=== PATIENT | female | born 1985 | race Caucasian/White ===

== ENCOUNTER 2016-07-23 01:56 | Inpatient (IN) | payer OTHER ==
--- NOTE | ~2016-07-23 | BMI ---
[facility] Nutrition Therapy DATE: 07/23/16 Patient: ARIEL MEHTA Physician: JONATAN Address: [address] [place] [address] Room/Bed: [address] [place] [address], Zip: [place] [address] Admit Date: 07/23/16 Date of : [birth year] Height: Weight: 299 136 HIGH BMI NOTE: DX: 30 Y.O. FEMALE ADMITTED FOR STOMACH AND BACK PAIN. ANTHROPOMETRICS: 5'9", WT: 300# (136 KG), BMI 44 DIET: NPO INTERVENTION: 1. NPO RECOMMENDATIONS: 1. ONCE MEDICALLY FEASIBLE, ADVANCE DIET TO HEALTHY HEART DIET IN ORDER TO PROMOTE GRADUAL WEIGHT LOSS TOWARD A HEALTHY BMI (19.0-25.0) OR +/-10% IBW. RD WILL F/U PER PROTOCOL. Respectfully, LUIS A OROZCO, TRAVEL FREIGHT AND PASSENGER AGENT HUSSAIN ESCOBAR MS, RD, LD Food and Nutritional Services [facility] cc: client file
--- NOTE | ~2016-07-23 | CT2 ---
[facility] A Service of [facility] & [facility] RADIOLOGY TEXT RESULTS PATIENT: ARIEL MEHTA LOCATION: A 302-01 : 89 UNIT #: [id number] AGE: [address]: Mukul Lopez MD SEX: F ORDER DR: [id number] [facility] [address] [facility]. [place], [place] [address] [id number] I MR#: [id number] Acc #: [id number] NAME: ARIEL MEHTA : 1985 SEX: F STUDY DATE/TIME: 07/23/2016 4:34 UNIT: CEDOF ROOM: 95690 STUDY DESCRIPTION: CT Abd and Pelv W Cont Attending Physician: Pranay Monet M.D. Ordering Physician: Dorinda Poole A.P.R.N. Primary Care Physician: [facility] IMAGING REPORT This report is preliminary unless electronic signature is present EXAM CT abdomen and pelvis with contrast 07/23/2016 HISTORY 30-year-old female in the ED complaining of 2-day history of left upper abdomen pain radiating into the back. Fever. TECHNIQUE CT examination of the abdomen and pelvis was performed with IV contrast. GI contrast was not ordered. This CT examination was performed with one or more of the following radiation dose reduction techniques: automatic exposure control, adjustment of mA and/or kV according to patient size, and iterative reconstruction. FINDINGS ABDOMEN: Subtle soft tissue stranding surrounds the pancreas, the pancreas appears mildly enlarged. The appearance suggests mild diffuse acute pancreatitis. Pancreatic parenchyma enhances normally. No fluid collection is seen within or adjacent to the pancreas. The gallbladder is mildly distended. There is no intrahepatic or extrahepatic bile duct dilatation, there is no pancreatic duct dilatation. Consider followup ultrasound examination to evaluate for potential gallstone pancreatitis. Liver, pancreas, spleen and kidneys are normal in size and appearance. Mild diverticulosis is present throughout the sigmoid and lower descending colon, notable only for the patient's young age. There is no evidence of acute diverticulitis. Small bowel and colon are otherwise negative, and the appendix is normal. PELVIS: Uterus, ovaries, bladder and rectum are negative. No inguinal STS. [facility] A Service of [facility] & [facility] RADIOLOGY TEXT RESULTS PATIENT: ARIEL MEHTA LOCATION: C3A 302-01 : 87 UNIT #: [id number] AGE: [address]: Mukul Lopez MD SEX: F ORDER DR: hernia. IMPRESSION 1. Subtle CT findings suggesting mild diffuse acute pancreatitis. Clinical and laboratory correlation is recommended. 2. Gallbladder appears mildly distended but otherwise unremarkable. There is no bile duct or pancreatic duct dilatation. Consider followup ultrasound examination to exclude evidence of gallstone pancreatitis. 3. Mild sigmoid and descending colonic diverticulosis. Normal appendix. Dictated by... Vince James M.D. THIS IS AN ELECTRONICALLY VERIFIED REPORT Vince James M.D. at 07/30/2016 1:57 PM JOHNSON/christiano TD: 07/23/2016 06:22 JOB #: [id number] MEDICAL IMAGING REPORT Page 1 of 1 COPY
--- NOTE | ~2016-07-23 | NM22 ---
[facility] A Service of [facility] & [facility] RADIOLOGY TEXT RESULTS PATIENT: ARIEL MEHTA LOCATION: [facility] 302- : [birth year] UNIT #: [id number] AGE: [address]: Mukul Lopez MD SEX: F ORDER DR: [id number] [facility] [address] [facility]. [place], [place] [address] [id number] I MR#: [id number] Acc #: [id number] NAME: ARIEL MEHTA : 1985 SEX: F STUDY DATE/TIME: 07/26/2016 10:02 UNIT: [address] ROOM: [facility] STUDY DESCRIPTION: NM Hepatobiliary W GB Pharm Attending Physician: Mukul Lopez M.D. Ordering Physician: Saad Cannon M.D. Primary Care Physician: [facility] MEDICAL IMAGING REPORT This report is preliminary unless electronic signature is present EXAM HIDA scan with Kinevac CCK, 07/26/2016 HISTORY Right upper quadrant abdominal pain with back pain, nausea and vomiting since 07/20/2016. FINDINGS The patient received an intravenous injection of 6 mCi of technetium 99m tagged Choletec for hepatobiliary imaging. One hour following the injection of the radiopharmaceutical the patient received an intravenous injection of 2.9 mcg of Kinevac. There is homogeneous distribution of the radiotracer throughout the liver. Gallbladder activity was seen by 45 minutes postinjection of the radiopharmaceutical. Following Kinevac injection the gallbladder ejection fraction was 86.2% (normal is greater than 30%). IMPRESSION Normal HIDA scan with gallbladder ejection fraction of 86.2%. Dictated by... Rober Choudhary M.D. THIS IS AN ELECTRONICALLY VERIFIED REPORT Rober Choudhary M.D. at 07/27/2016 9:56 AM Wong TD: 07/26/2016 13:52 JOB #: [id number] MEDICAL IMAGING REPORT Page 1 of 1 COPY
--- NOTE | ~2016-07-23 | HP ---
Unit #: [id number] #: [id number] Patient: ARIEL MEHTA [id number] [address] [address] [id number] I MR#: [id number] NAME: ARIEL MEHTA ROOM: 302 Age: 30 Sex: F Admission Date: 07/23/2016 : 1985 Attending Physician: Mukul Lopez M.D. [facility] HISTORY AND PHYSICAL DIAGNOSIS ON ADMISSION Abdominal pain. HISTORY OF PRESENT ILLNESS A 30-year-old female presented to [facility] with abdominal pain. As per patient, she was in her usual state of health when she developed abdominal pain three days ago. Patient stated that the pain was on the mid to right side and was radiating to the back. As patient's pain did not improve, she decided to come to the hospital. Patient also stated that the pain was associated with nausea and vomiting and since yesterday, she is not able to keep anything down. Patient denies any fever, chills, or cough. She denies any headache or visual problems. Patient was diagnosed with acute pancreatitis in the ER and was admitted on the floor. Patient denies having fever, chills. There is no blood in urine or stools. There is no history of recent weight loss or loss of appetite. The rest of the review of systems was negative. PAST MEDICAL HISTORY 1. Patient was admitted at [facility] in November 2015 and had right labial abscess secondary to staph infection. She also had a right abdominal cellulitis at that time. 2. Normocytic anemia. 3. Depression. PAST SURGICAL HISTORY 1. . 2. Tonsillectomy. 3. Right ankle fracture (1) repair. 4. Right labial abscess, status post incision. ALLERGIES No known drug allergies. HOME MEDICATIONS Patient stated that she does not take any medications. FAMILY HISTORY Positive for hypertension, diabetes, and COPD. SOCIAL HISTORY Patient smokes half pack of cigarettes for past 20 years. She denies drinking. PHYSICAL EXAMINATION Unit #: [id number] #: [id number] Patient: ARIEL MEHTA GENERAL: Patient is lying comfortably in bed, is not in any acute distress. VITAL SIGNS: Reveal temperature of 98.2, pulse 68 per minute, respiratory rate is 18 per minute, blood pressure 144/78. HEENT: Revealed no conjunctival congestion. Sclerae is nonicteric. NECK: Supple. Trachea central. RESPIRATORY: Revealed breath sounds equal bilaterally. There are no wheezes or crackles. HEART: Regular rate and rhythm. S1, S2. ABDOMEN: Soft. There is mid and right-sided tenderness present. There is no rebound, rigidity, or guarding. SKIN: Warm and dry. PSYCHIATRY: Patient is alert to person, place, and time and is very emotional. DIAGNOSTIC STUDIES LABORATORY: Labs on admission: Patient's creatinine is 0.6, sodium 137, potassium 4.1. AST and ALT are within normal limits. Amylase was 554, lipase 1261. WBC 17.4, hemoglobin 12.7, platelet count 320,000. Urinalysis was negative. IMAGING: CT scan of abdomen and pelvis was done which reveals subtle CT findings suggesting mild diffuse acute pancreatitis. Gallbladder appears mildly distended but otherwise unremarkable. ASSESSMENT AND PLAN A 30-year-old patient presented to [facility] with abdominal pain. 1. Acute pancreatitis: We will do right upper quadrant ultrasound to rule out cholelithiasis. We will also have Dr. Saad Cannon to see patient in GI consult. Patient is complaining of increased pain. We will increase patient's Dilaudid to 1 mg as she is currently on 0.5 mg. 2. Tobacco abuse: The patient was encouraged to quit smoking. The plan was discussed in detail with patient and her parents and they showed complete understanding. Dictated by Rosy Preciado/kye TD: 07/23/2016 14:14 JOB #: [id number] CC: [facility], [facility]. Unit #: [id number] #: [id number] Patient: ARIEL MEHTA HISTORY AND PHYSICAL Page 1 of 1 X Mukul Lopez MD HISTORY AND PHYSICAL
--- NOTE | ~2016-07-23 | US5 ---
[facility] A Service of [facility] RADIOLOGY TEXT RESULTS PATIENT: ARIEL MEHTA LOCATION: [facility] : 87 UNIT #: [id number] AGE: [address]: Mukul Lopez MD SEX: F ORDER DR: [id number] [facility] [address] [place], [place] [address] [id number] I MR#: [id number] Acc #: [id number] NAME: ARIEL MEHTA : 1985 SEX: F STUDY DATE/TIME: 07/24/2016 9:27 UNIT: C3A PCU ROOM: [facility] STUDY DESCRIPTION: US Abdominal Complete Attending Physician: Mukul Lopez M.D. Ordering Physician: Mukul Lopez M.D. Primary Care Physician: [facility] MEDICAL IMAGING REPORT This report is preliminary unless electronic signature is present EXAM Right upper quadrant ultrasound, 07/24/16 HISTORY A 2 month history of abdominal pain. COMPARISON STUDIES CT examination dated 07/23/16. CT examination suggest possible subtle pancreatitis. FINDINGS Questioned thickening of the pancreas. Hepatic parenchymal echotexture is normal. There is no intrahepatic biliary ductal dilatation or mass. The right kidney is normal in size and echotexture without solid mass, calcification of hydronephrosis. The gallbladder is normal without stone, wall thickening or pericholecystic fluid. Extrahepatic common duct is normal in caliber about 4 mm in the hilum. IMPRESSION Question slight thickening of the pancreas, limited images. Otherwise, negative. No intrahepatic or extrahepatic biliary ductal dilatation, and the gallbladder is normal without stone, wall thickening or pericholecystic fluid. Dictated by... Kenrick Lopes M.D. THIS IS AN ELECTRONICALLY VERIFIED REPORT Kenrick Lopes M.D. at 07/24/2016 10:46 PM JERAMY/lenka [facility] A Service of [facility] RADIOLOGY TEXT RESULTS PATIENT: ARIEL MEHTA LOCATION: [facility] : 87 UNIT #: [id number] AGE: [address]: Mukul Lopez MD SEX: F ORDER DR: TD: 07/24/2016 20:51 JOB #: [id number] MEDICAL IMAGING REPORT Page 1 of 1 COPY
--- NOTE | ~2016-07-23 | DS ---
Unit #: [id number] #: [id number] Patient: ARIEL MEHTA [id number] [address] [address] [id number] I MR#: [id number] NAME: ARIEL MEHTA ROOM: 302 Age: 30 Sex: F Admission Date: 07/23/2016 : 1985 Discharge Date: Attending Physician: Mukul Lopez M.D. Primary Care Physician: [facility] DISCHARGE SUMMARY DIAGNOSIS ON ADMISSION Acute pancreatitis. DIAGNOSES ON DISCHARGE 1. Acute pancreatitis, resolved. 2. Depression. 3. Leukocytosis, resolved. CONSULTANTS Dr. Saad Cannon, gastroenterology. LABS AND PROCEDURES 1. Urinalysis was done which was negative. 2. CT scan of abdomen and pelvis done which revealed subtle CT findings suggestive of mild diffuse acute pancreatitis. Gallbladder appeared mildly distended but otherwise unremarkable. 3. Patient had abdominal ultrasound done. Revealed slight thickening of the pancreas, otherwise negative. There was no intrahepatic or extrahepatic biliary ductal dilatation and the gallbladder was normal without stone, wall thickening, or pericholecystic fluid. 4. Urine for HCG was negative. 5. Creatinine 0.6, sodium 138, potassium 3.7, AST and ALT within normal limits. 6. Amylase and lipase is normal. 7. Total cholesterol 124, triglycerides 53, LDL 75, HDL 38. 8. WBC 10.8, hemoglobin 10.0, platelet count 267. 9. Patient had a HIDA scan and this is pending. HOSPITAL COURSE This 30-year-old patient admitted to the hospital with acute pancreatitis. For details, please see Admission History and Physical. The patient was treated with IV fluids and pain medication. The patient was seen by Dr. Saad Cannon in consultation. The patient has responded well to treatment and she is doing much better. She is tolerating diet. She states that her abdominal pain has improved. Patient had a HIDA scan done, results are pending. If patient's HIDA scan, then patient will be discharged home. PHYSICAL EXAMINATION ON DISCHARGE GENERAL: Today, patient is comfortable, is not in any acute distress. VITAL SIGNS: Temperature 98.4, pulse 77 per minute, respiratory rate 18 per minute, blood pressure 129/71. Unit #: [id number] #: [id number] Patient: ARIEL MEHTA HEENT: No conjunctival congestion. Sclerae nonicteric. NECK: Supple. Trachea is central. LUNGS: Breath sounds are equal bilaterally. No wheezes or crackles. HEART: Regular rate and rhythm, S1, S2. ABDOMEN: Soft, nontender. Bowel sounds are present in all four quadrants. NEUROLOGIC: Patient is alert to person, place and time. Power is 5/5 bilaterally. Sensations are grossly intact. SKIN: Warm and dry. RECOMMENDATIONS ON DISCHARGE Patient is stable. Activity is as tolerated. DISCHARGE MEDICATIONS [place] 5/325 mg one p.o. q.8 h. p.r.n. #10 were dispensed. FOLLOWUP Patient is advised to follow up with primary care physician in one week and follow up with Gastroenterology as recommended. The plan was discussed in detail with the patient who showed complete understanding. Please make note, patient's antibiotics were discontinued because there is no evidence of active infection. Patient's symptoms are likely secondary to acute pancreatitis. Dictated by... Rosy Preciado/hussein TD: 07/26/2016 15:37 JOB #: [id number] DISCHARGE SUMMARY Page 1 of 1 X Mukul Lopez MD X DISCHARGE SUMMARY
--- NOTE | ~2016-07-23 | CO ---
Unit #: [id number] #: [id number] Patient: ARIEL MEHTA [id number] [address] [address] [id number] I MR#: [id number] NAME: ARIEL MEHTA ROOM: 302 Age: 30 Sex: F Admission Date: 07/23/2016 : 1985 Attending Physician: Mukul Lopez M.D. [facility] Consultation Date: 07/24/2016 CONSULTATION REPORT REASON FOR CONSULTATION Acute pancreatitis. HISTORY Ms. Mehta is a 30-year-old white female patient who presented with a history of severe upper abdominal pain for three to four days along with nausea and vomiting and radiation to the back. She was found to have acute pancreatitis based upon her pancreatic enzyme elevations in the emergency room and CT findings. She also mentions to me that she fell down in December of last year and since then has been having a lot of low-back pain, especially in the lower left side. PAST MEDICAL HISTORY 1. History of depression. 2. Anemia. 3. Right labial abscess. PAST SURGICAL HISTORY 1. Surgery for right labial abscess. 2. section. 3. Tonsillectomy. 4. Right ankle fracture. ALLERGIES No known drug allergies. MEDICATIONS Does not take any regular medications. She denies taking ofse-[id number] NSAIDs. FAMILY HISTORY Significant for diabetes, hypertension, and COPD. One of her uncles had pancreatitis. SOCIAL HISTORY Smokes half pack cigarettes daily for 20 years. She does drink but only very occasionally. REVIEW OF SYSTEMS A detailed review of organ system does not reveal any recent weight loss. No history of fever, chills, or rigors. No headache, seizures, or syncope. No history of cough, expectoration, hemoptysis. No history of dysuria, hematuria, or prior history of focal seizures or extremity weakness. The rest of review of organ systems is unremarkable. Unit #: [id number] #: [id number] Patient: ARIEL MEHTA PHYSICAL EXAMINATION GENERAL: She is awake, alert, and oriented and appears quite uncomfortable from the pain. VITAL SIGNS: Her temperature is 99, pulse 98 per minute, respirations 20, blood pressure 158/64. She weighs 312 pounds, appears obese. HEENT: She has no pallor, icterus, lymphadenopathy, or peripheral edema. CARDIOVASCULAR: Reveals normal heart sounds. No murmurs. LUNGS: Auscultation of the lungs reveal normal breath sounds. Good air entry. ABDOMEN: Soft, obese, nontender. Liver and spleen are not palpable. Bowel sounds normal. The patient is quite restless because of the pain, especially in the left low back. DIAGNOSTIC STUDIES LABORATORY: The lab evaluation shows a white count of 22,000. Hemoglobin is 11.4, platelet count is 207,000. Her BUN and creatinine is normal and sodium and potassium of 134 and 3.6. Albumin is 3.8 yesterday and 3.3 today. LFTs are normal. Amylase was 550 yesterday and 140 today. Lipase was 1261 yesterday. Lactic acid was normal. Triglycerides were done and were 53. IMAGING: CT scan shows changes consistent with acute pancreatitis. There is no biliary ductal dilation. CLINICAL IMPRESSION Patient with acute idiopathic pancreatitis. It is certainly nonalcoholic, nonbiliary, and nonhyperlipidemic. In addition, she has unrelated back pain from a fall last year and this is compounding the pain as well. MANAGEMENT PLAN Patient has already had a CT scan and ultrasound. Suggest doing a HIDA scan and CCK. Also, add Toradol because (1) pain in the low back at a dose of 20 mg once followed by 10 mg p.o. t.i.d. Will also start her on a clear liquid diet. The above plan was discussed with patient and her mom and dad who are at the bedside. Thank you for asking me to see this pleasant woman. I appreciate the consult. Dictated by... Rosy Nichols/kye TD: 07/26/2016 10:16 JOB #: [id number] Unit #: [id number] #: [id number] Patient: ARIEL MEHTA CONSULTATION REPORT Page 1 of 1 X Saad Cannon MD CONSULTATION REPORT
[~2016-07-23 01:56] MED LIST: DAKIN'S MODIF1000 ML; LEVAQUIN PO; LORTAB 10-3251 EACH PO; MEDROL PO; PERCOCET 10/3251 TAB PO; PRENATAL1 TA1 PO; TESSALON PERLE100 M1 PO
[2016-07-23 02:51] LABS: URINE SOURCE CLEAN CATCH
[2016-07-23 02:57] LABS: URINE APPEARANCE CLOUDY; URINE BILIRUBIN NEG (NEG); URINE BLOOD NEG (NEG); URINE COLOR YELLOW; URINE GLUCOSE NEG (NEG); URINE KETONE NEG (NEG); URINE LEUKOCYTE ESTERASE NEG (NEG); URINE NITRATE NEG (NEG); URINE PROTEIN NEG (NEG); URINE SPECIFIC GRAVITY 1.033 (1.003-1.035)
[2016-07-23 02:58] LABS: BASOPHIL# 0.1 X10e3 (0-0.3); BASOPHIL% 0.3 % (0-2.5); EOSINOPHIL# 0.4 X10e3 (0-0.7); EOSINOPHIL% 2.5 % (0.0-7.0); HEMOGLOBIN 12.7 gm/dL (12.0-16.0); LYMPHOCYTE# 2.9 X10e3 (1.0-3.5); LYMPHOCYTE% 16.4 % (17.0-45.0); MEAN CELL VOLUME 83.9 FL (83-96); MEAN CORPUSCULAR HEMOGLOBIN 27.3 PG (28-34); MEAN CORPUSCULAR HGB CONC 32.6 g/dL (30-36); MEAN PLATELET VOLUME 9.1 FL (6.5-11.5); MONOCYTE# 1.3 X10e3 (0-1.0); MONOCYTE% 7.4 % (3.0-12.0); NEUTROPHIL# 12.8 X10e3 (1.5-7.1); NEUTROPHIL% 73.4 % (40-75); PLATELET COUNT 320 X10e3 (140-420); RED BLOOD COUNT 4.65 X10e (3.90-5.30); RED CELL DISTRIBUTION WIDTH 14.5 % (11.0-15.5); WHITE BLOOD COUNT 17.4 X10e3 (4.0-10.5)
[2016-07-23 02:59] LABS: DIFF IND YES
[2016-07-23 03:04] LABS: CULTURE INDICATED? NO
[2016-07-23 03:30] LABS: PLATELET ESTIMATE NORMAL (NORMAL)
[2016-07-23 03:41] LABS: ALBUMIN SERUM 3.8 g/dL (3.5-5.0); BILIRUBIN, DIRECT 0.1 mg/dL (0.0-0.2); BILIRUBIN,INDIRECT 0.3 mg/dL (0.0-0.9); BILIRUBIN,TOTAL 0.4 mg/dL (0.2-2.0); BUN/CREATININE RATIO 18.33; CALCIUM SERUM 8.5 mg/dL (8.4-10.2); CREATININE SERUM 0.6 mg/dL (0.6-1.4); POTASSIUM 4.1 mmol/L (3.5-5.1)
[2016-07-24 06:32] LABS: HEMATOCRIT 35.5 % (35.0-45.0); HEMOGLOBIN 11.4 gm/dL (12.0-16.0); MEAN CORPUSCULAR HEMOGLOBIN 27.3 PG (28-34); MEAN CORPUSCULAR HGB CONC 32.2 g/dL (30-36); RED BLOOD COUNT 4.18 X10e (3.90-5.30); RED CELL DISTRIBUTION WIDTH 14.8 % (11.0-15.5); WHITE BLOOD COUNT 22.4 X10e3 (4.0-10.5)
[2016-07-24 08:32] LABS: ALBUMIN SERUM 3.3 g/dL (3.5-5.0); ALKALINE PHOSPHATASE 51 U/L (32-92); ALT (SGPT) 13 U/L (10-40); AMYLASE 140 U/L (0-46); AST (SGOT) 13 U/L (10-42); BILIRUBIN,TOTAL 0.6 mg/dL (0.2-2.0); CALCIUM SERUM 8.2 mg/dL (8.4-10.2); CARBON DIOXIDE 24 mmol/L (22-31); CHLORIDE 102 mmol/L (100-111); CHOLESTEROL 124 mg/dL (0-200); CREATININE SERUM 0.5 mg/dL (0.6-1.4); GLOM FILT RATE Estimated 131.7 mL/min (>60); GLUCOSE FASTING 107 mg/dL (70-110); HDL CHOLESTEROL 38 mg/dL (35-95); LDL CHOLESTEROL 75 mg/dL ([, -130]); LDL/HDL RATIO 2 RATIO (0-4); POTASSIUM 3.6 mmol/L (3.5-5.1); PROTEIN TOTAL SERUM 6.6 g/dL (6.0-8.3); SODIUM 134 mmol/L (135-145); TRIGLYCERIDES 53 mg/dL (10-160)
[2016-07-24 08:48] LABS: BLOOD UREA NITROGEN <5 mg/dL (9-23)
[2016-07-25 05:36] LABS: HEMATOCRIT 34.3 % (35.0-45.0); HEMOGLOBIN 11.1 gm/dL (12.0-16.0); MEAN CELL VOLUME 84.8 FL (83-96); MEAN CORPUSCULAR HEMOGLOBIN 27.3 PG (28-34); MEAN CORPUSCULAR HGB CONC 32.2 g/dL (30-36); MEAN PLATELET VOLUME 9.2 FL (6.5-11.5); RED BLOOD COUNT 4.05 X10e (3.90-5.30); RED CELL DISTRIBUTION WIDTH 14.6 % (11.0-15.5); WHITE BLOOD COUNT 19.5 X10e3 (4.0-10.5)
[2016-07-25 06:45] LABS: ALBUMIN SERUM 2.8 g/dL (3.5-5.0); ALKALINE PHOSPHATASE 53 U/L (32-92); ALT (SGPT) 10 U/L (10-40); AMYLASE 36 U/L (0-46); AST (SGOT) 13 U/L (10-42); BILIRUBIN,TOTAL 0.5 mg/dL (0.2-2.0); CARBON DIOXIDE 25 mmol/L (22-31); CHLORIDE 103 mmol/L (100-111); CREATININE SERUM 0.6 mg/dL (0.6-1.4); GLUCOSE FASTING 98 mg/dL (70-110); LIPASE 33 U/L (22-51); POTASSIUM 3.6 mmol/L (3.5-5.1); PROTEIN TOTAL SERUM 5.7 g/dL (6.0-8.3); SODIUM 135 mmol/L (135-145)
[2016-07-25 06:46] LABS: BLOOD UREA NITROGEN <5 mg/dL (9-23); BUN/CREATININE RATIO 8.33
[2016-07-25 06:48] LABS: INR 1.2; PARTIAL THROMBOPLASTIN TIME 36.5 SECONDS (23.5-31.3); PROTHROMBIN TIME (PATIENT) 12.9 SECONDS (9.6-11.5)
[2016-07-26 05:30] LABS: HEMATOCRIT 30.8 % (35.0-45.0); MEAN CELL VOLUME 84.9 FL (83-96); MEAN CORPUSCULAR HEMOGLOBIN 27.6 PG (28-34); MEAN CORPUSCULAR HGB CONC 32.6 g/dL (30-36); MEAN PLATELET VOLUME 9.1 FL (6.5-11.5); RED BLOOD COUNT 3.63 X10e (3.90-5.30); RED CELL DISTRIBUTION WIDTH 14.4 % (11.0-15.5); WHITE BLOOD COUNT 10.8 X10e3 (4.0-10.5)
[2016-07-26 07:01] LABS: ALBUMIN SERUM 2.8 g/dL (3.5-5.0); ALKALINE PHOSPHATASE 54 U/L (32-92); ALT (SGPT) 13 U/L (10-40); AMYLASE 10 U/L (0-46); AST (SGOT) 10 U/L (10-42); BILIRUBIN,TOTAL 0.3 mg/dL (0.2-2.0); CALCIUM SERUM 8.1 mg/dL (8.4-10.2); CARBON DIOXIDE 27 mmol/L (22-31); CHLORIDE 105 mmol/L (100-111); CREATININE SERUM 0.6 mg/dL (0.6-1.4); GLUCOSE FASTING 104 mg/dL (70-110); LIPASE 17 U/L (22-51); POTASSIUM 3.7 mmol/L (3.5-5.1); PROTEIN TOTAL SERUM 6.1 g/dL (6.0-8.3); SODIUM 138 mmol/L (135-145)
[2016-07-26 07:02] LABS: BLOOD UREA NITROGEN <5 mg/dL (9-23); BUN/CREATININE RATIO 8.33
[2016-07-26] MEDS ORDERED: HYDROCODON-ACE1 EAC7 PO (15:02)
== END 2016-07-26 15:51 | disposition home or self-care (01) | DRG 440 ==
LOC: CED 01:56 → C3A PCU 05:20 → CEDOF 05:20 → CED 05:26 → CEDOF 05:26 → C3A PCU 07:33 → CEDOF 07:33 → C3A PCU 07-26 15:51
PROVIDERS: Internal Medicine; Internal Medicine Gastroenterology; Nurse Practitioner
DX: K85.00 Idiopathic acute pancreatitis without necrosis or infection (principal); F32.9 Major depressive disorder, single episode, unspecified; F17.210 Nicotine dependence, cigarettes, uncomplicated; D72.829 Elevated white blood cell count, unspecified; Z71.6 Tobacco abuse counseling
CPT/HCPCS: 36415; 74177; 76700; 78227; 80048; 80053; 80061; 80076; 81003; 82150; 83690; 84703; 85025; 85027; 85610; 85730; 96374; 96375; 99285; A9537; C9113; J0696; J1170; J1650; J1885; J2270; J2405; J2550; J2805; Q9967

== ENCOUNTER 2016-10-25 21:41 | Emergency (ER) | payer OTHER ==
--- NOTE | ~2016-10-25 | CR21 ---
[facility] A Service of [facility] & [facility] RADIOLOGY TEXT RESULTS PATIENT: ARIEL MEHTA LOCATION: [facility] : 87 UNIT #: [id number] AGE: [address]: ASIF MORALES APRN SEX: F ORDER DR: [id number] [facility] [address] [facility]. [place], [place] [address] [id number] MR#: [id number] Acc #: [id number] NAME: ARIEL MEHTA : 1985 SEX: F STUDY DATE/TIME: UNIT: [facility] ROOM: STUDY DESCRIPTION: CR Ankle Min 3 Views Rt Attending Physician: Asif Morales Aprn Ordering Physician: Asif Morales Aprn Primary Care Physician: [facility] MEDICAL IMAGING REPORT This report is preliminary unless electronic signature is present EXAM Right ankle 10/25 at 23:43 INDICATIONS Ankle pain for 2 weeks after stepping in a hole 2 weeks ago. Prior history of trauma. FINDINGS 3 views of the right ankle were obtained. Patient is status post fixation of the distal fibula with plate and screws. Medial malleolus fracture has been fixed with 2 screws. 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 No acute fracture or malalignment is seen. IMPRESSION Previous ORIF. No acute fracture or malalignment. Dictated by... José Miguel Sánchez Jr., M.D. THIS IS AN ELECTRONICALLY VERIFIED REPORT José Miguel Sánchez Jr., M.D. at 10/26/2016 9:15 PM RLK/cynthia TD: 10/26/2016 14:15 JOB #: [id number] MEDICAL IMAGING REPORT Page 1 of 1 COPY
[~2016-10-25 21:41] MED LIST changes: +HYDROCODON-ACE1 EAC7 PO
== END 2016-10-26 01:10 | disposition home or self-care (01) ==
LOC: CED 21:41 → CFTX 21:41
DX: S93.401A Sprain of unspecified ligament of right ankle, initial encounter (principal); F32.9 Major depressive disorder, single episode, unspecified; F17.210 Nicotine dependence, cigarettes, uncomplicated; Z98.890 Other specified postprocedural states; X58.XXXA Exposure to other specified factors, initial encounter; Y92.009 Unspecified place in unspecified non-institutional (private) residence as the place of occurrence of the external cause
CPT/HCPCS: 29540; 73610; 99283